=== PATIENT | female | born 1975 | race Caucasian/White ===

== ENCOUNTER → 2021-07-15 | Outpatient (CLI) | payer BC | LOC: MC.RAD 13:51 | DX: Z12.31 Encounter for screening mammogram for malignant neoplasm of breast (principal) ==

== ENCOUNTER 2021-09-30 07:01 | Day surgery (SDC) | payer BC ==
[~2021-09-30] VITALS: Ht 176.5 cm; Wt 65.7 kg
[2021-09-30 07:08] VITALS: BP 103/56; PULSE 60; TEMP 97.8
[2021-09-30] MEDS ORDERED: ADDERALL XR25 MG PO (07:08)
--- NOTE | 2021-09-30 09:12 | NUR ---
Pt returned from procedure,report received.
[2021-09-30 09:13] VITALS: BP 118/48; PULSE 51
[2021-09-30 09:30] VITALS: BP 108/39; PULSE 36
[2021-09-30 09:45] VITALS: BP 103/55; PULSE 41
[2021-09-30 10:03] VITALS: BP 103/55; PULSE 54
--- NOTE | 2021-09-30 10:20 | NUR ---
Discharge instructions gien to pt.Pt verbalizes understanding.Pt escorted out via wheelchair by this nurse
[2021-09-30 12:08] VITALS: BP 119/79; PULSE 59
== END 2021-09-30 10:26 ==
LOC: SDCO 07:01
DX: Z12.11 Encounter for screening for malignant neoplasm of colon (principal); D12.2 Benign neoplasm of ascending colon; D12.3 Benign neoplasm of transverse colon
CPT/HCPCS: J2704; J7120

== ENCOUNTER → 2022-10-20 | Outpatient (CLI) | payer BC ==
[~2022-10-20] MED LIST: ADDERALL XR25 MG PO
== END ==
LOC: MC.RAD 08:26
DX: Z12.31 Encounter for screening mammogram for malignant neoplasm of breast (principal)

== ENCOUNTER → 2023-11-02 | Outpatient (CLI) | payer OTHER | LOC: MC.RAD 08:09 | DX: Z12.31 Encounter for screening mammogram for malignant neoplasm of breast (principal) ==